=== PATIENT | male | born 1950 | race Caucasian/White ===

== ENCOUNTER 2024-12-31 21:11 | Inpatient (IN) | payer OTHER ==
[~2024-12-31] VITALS: Ht 162.6 cm; Wt 72.6 kg
[2024-12-31 21:53] LABS: PLATELET COUNT (AUTO) 396 K/uL (150-450); RED BLOOD CELL COUNT(AUTO) 4.09 MIL/uL (4.5-6.0); RED CELL DISTRIBUTION WIDTH 16.1 % (11.5-15.0); WHITE BLOOD COUNT (AUTO) 11.2 K/uL (4.3-11.0)
[2024-12-31 22:03] LABS: CALCIUM, SERUM 8.7 mg/dL (8.5-10.1); CREATININE 3.1 mg/dL (0.6-1.3); SODIUM SERUM 135 mmol/L (136-145); UREA NITROGEN, BLOOD 35 mg/dL (7-18)
[2024-12-31 22:09] LABS: ASPARTATE AMINOTRANSFERASE 67 U/L (15-37); TOTAL PROTEIN, SERUM 6.8 g/dL (6.4-8.2)
[2024-12-31] MEDS ORDERED: ONDANSETRON HCL/PF 4 MG/2 ML VIAL ONE (22:35)
[2024-12-31] MEDS: IV NS 0.9% 1,000 ML IV ONE ×2 (22:36→23:09)
[2024-12-31] MEDS: ONDANSETRON HCL/PF - ER 4 MG/2 ML VIAL IV ONE (22:41)
[2024-12-31 22:46] LABS: LACTIC ACID 3.3 mmol/L (0.4-2.0)
[2024-12-31 22:49] LABS: NT-PRO BNP 1153 pg/mL (0-125)
[2024-12-31] MEDS ORDERED: PIPERACI/TAZO 3.375GM/D5W 50ML PB IV ONE (22:59)
[2024-12-31] MEDS: PIPERACILLIN /TAZOBACTAM 3.375 G in IV D5W 50 ML IV ONE (23:06)
[2025-01-01] MEDS ORDERED: POTASSIUM CL. PREMIX PERIPHER. 50 ML ONE (00:05)
[2025-01-01] MEDS: POTASSIUM CL. PREMIX PERIPHER. 50 ML IV SCH (00:13)
[2025-01-01] MEDS ORDERED: ONDANSETRON HCL/PF 4 MG/2 ML VIAL ONE (00:38)
[2025-01-01] MEDS ORDERED: HYDROMORPHONE 1 MG/1 ML DISP.SYRIN ONE (00:39)
[2025-01-01] MEDS: HYDROMORPHONE 1 MG/1 ML DISP.SYRIN IV ONE (00:44)
[2025-01-01] MEDS: ONDANSETRON HCL/PF - ER 4 MG/2 ML VIAL IV ONE (00:45)
[2025-01-01 01:45] LABS: APPEARANCE,URINE CLEAR (CLEAR); BLOOD, URINE TRACE-INTA Ery/uL (NEGATIVE); LEUKOCYTE ESTERASE ,URINE 3+ (NEGATIVE); NITRITE, URINE NEGATIVE (NEGATIVE); UGLUCOSE NEGATIVE (NEGATIVE)
[2025-01-01 02:10] LABS: ADD URINE CULTURE YES; SQUAMOUS EPITHELIAL CELL,UR 0-2 /HPF (None Seen)
[2025-01-01] MEDS ORDERED: FENTANYL PF 100MCG/2ML AMPUL IV PRN (03:00)
[2025-01-01] MEDS ORDERED: HYDROMORPHONE 1 MG/1 ML DISP.SYRIN IV PRN (03:00)
[2025-01-01] MEDS ORDERED: Z GUARD REMEDY 4 OZ OINT TP PRN (03:00)
[2025-01-01] MEDS: PIPERCILLIN/TAZOBACTAM 2.25GM/D5W 50MLPB IV ONE (04:30)
[2025-01-01] MEDS: PIPERACILLIN /TAZOBACTAM 2.25 G in IV D5W 50 ML IV ONE (04:47)
[2025-01-01 06:01] LABS: PLATELET COUNT (AUTO) 282 K/uL (150-450); RED BLOOD CELL COUNT(AUTO) 3.73 MIL/uL (4.5-6.0); RED CELL DISTRIBUTION WIDTH 16.3 % (11.5-15.0); WHITE BLOOD COUNT (AUTO) 8.9 K/uL (4.3-11.0)
[2025-01-01 06:11] LABS: CALCIUM, SERUM 8.0 mg/dL (8.5-10.1); CREATININE 2.7 mg/dL (0.6-1.3); INR 1.35 (0.91-1.10); PHOSPHORUS 4.1 mg/dL (2.5-4.9); SERUM AMMONIA 26.0 umol/L (11-32); SODIUM SERUM 138.0 mmol/L (136-145); UREA NITROGEN, BLOOD 35.0 mg/dL (7-18)
[2025-01-01 07:30] VITALS: BP 139/74; TEMP 97.5; O2SAT 97
[2025-01-01] MEDS: SPIRONOLACTONE 25 MG TABLET PO SCH (08:25)
[2025-01-01] MEDS: FUROSEMIDE 40 MG TABLET PO SCH (08:26)
[2025-01-01] MEDS: PIPERACILLIN /TAZOBACTAM 2.25 G in IV D5W 50 ML IV SCH (12:06)
[2025-01-01] MEDS: POTASSIUM CHLORIDE 20 MEQ TAB.PRT.SR PO ONE (15:05)
[2025-01-01] MEDS: ALBUMIN 25% 25 GM in PREMIX 1 EA IV SCH (15:53)
[2025-01-01 16:15] VITALS: BP 125/70; TEMP 97.7; O2SAT 98
[2025-01-01 20:00] VITALS: BP 135/71; TEMP 98.4; O2SAT 99
[2025-01-02 05:58] LABS: PLATELET COUNT (AUTO) 213 K/uL (150-450); RED BLOOD CELL COUNT(AUTO) 3.07 MIL/uL (4.5-6.0); RED CELL DISTRIBUTION WIDTH 15.6 % (11.5-15.0); WHITE BLOOD COUNT (AUTO) 5.6 K/uL (4.3-11.0)
[2025-01-02 06:03] LABS: ASPARTATE AMINOTRANSFERASE 40.0 U/L (15-37); CALCIUM, SERUM 8.3 mg/dL (8.5-10.1); CREATININE 2.8 mg/dL (0.6-1.3); PHOSPHORUS 3.5 mg/dL (2.5-4.9); SODIUM SERUM 143.0 mmol/L (136-145); TOTAL PROTEIN, SERUM 5.8 g/dL (6.4-8.2); UREA NITROGEN, BLOOD 34.0 mg/dL (7-18)
[2025-01-02 06:04] LABS: CREATINE KINASE, TOTAL 32.0 U/L (39-308)
[2025-01-02 06:11] LABS: HEPATITIS A AB, IgM Negative (Negative); HEPATITIS A AB, TOTAL Positive (Negative); HEPATITIS B CORE AB, IgM Negative (Negative); HEPATITIS B CORE AB, TOTAL Positive (Negative); HEPATITIS B SURFACE AB (QUAL) Reactive (.)
[2025-01-02 07:30] VITALS: BP 128/74; TEMP 97.9; O2SAT 96
[2025-01-02] MEDS: VITAMINS A AND D 56.7 GM TUBE TP PRN (08:23)
[2025-01-02] MEDS: POTASSIUM CHLORIDE 20 MEQ TAB.PRT.SR PO ONE (13:07)
[2025-01-02] MEDS: ALBUMIN 25% 25 GM in PREMIX 1 EA IV SCH (14:02)
[2025-01-02 16:00] VITALS: BP 127/62; TEMP 98.1; O2SAT 97
[2025-01-02] MEDS: ONDANSETRON HCL/PF 4 MG/2 ML VIAL IVP PRN (18:53)
[2025-01-02 20:14] VITALS: BP 130/61; TEMP 98.4; O2SAT 98
[2025-01-02] MEDS: TAMSULOSIN 0.4 MG CAP.SR.24H PO SCH (22:07)
[2025-01-03] VITALS (7 sets, daily range): BP systolic 109–121; BP diastolic 55–67; TEMP 96.4–99.3; O2SAT 95–98
[2025-01-03 06:23] LABS: PLATELET COUNT (AUTO) 194 K/uL (150-450); RED BLOOD CELL COUNT(AUTO) 3.02 MIL/uL (4.5-6.0); RED CELL DISTRIBUTION WIDTH 16.3 % (11.5-15.0); WHITE BLOOD COUNT (AUTO) 5.6 K/uL (4.3-11.0)
[2025-01-03 06:38] LABS: ASPARTATE AMINOTRANSFERASE 39.0 U/L (15-37); CALCIUM, SERUM 8.3 mg/dL (8.5-10.1); CREATININE 2.5 mg/dL (0.6-1.3); PHOSPHORUS 2.7 mg/dL (2.5-4.9); SODIUM SERUM 143.0 mmol/L (136-145); TOTAL PROTEIN, SERUM 5.7 g/dL (6.4-8.2); UREA NITROGEN, BLOOD 33.0 mg/dL (7-18)
[2025-01-03 09:11] LABS: PTH, INTACT 47 pg/mL (15-65)
[2025-01-03 13:40] LABS: CREATININE, URINE 82.1 MG/DL (30.0-125.0); URINE SODIUM, RANDOM 45.0 mmol/l (40-220); URINE TOTAL PROTEIN 47.5 mg/dL (0-11.9)
[2025-01-03 15:41] LABS: INR 1.53 (0.91-1.10)
[2025-01-03 15:53] LABS: FIBRINOGEN ACTIVITY 91.0 Mg/dL (213-485)
[2025-01-03 15:57] LABS: IRON, SERUM 51.0 ug/dl (50-175)
[2025-01-03] MEDS: TAMSULOSIN 0.4 MG CAP.SR.24H PO SCH (22:06)
[2025-01-04 00:02] VITALS: BP 121/73; TEMP 98.1
[2025-01-04 00:17] VITALS: BP 130/63; TEMP 98.6
[2025-01-04 06:10] LABS: AFP, TUMOR MARKER <1.8 ng/mL (0.0-8.4); CARBOHYDRATE AG 19-9 31 U/mL (0-35); CARCINOEMBRYONIC ANTIGEN (CEA) 62.0 ng/mL (0.0-4.7)
[2025-01-04 06:31] LABS: PLATELET COUNT (AUTO) 171 K/uL (150-450); RED BLOOD CELL COUNT(AUTO) 3.28 MIL/uL (4.5-6.0); RED CELL DISTRIBUTION WIDTH 16.8 % (11.5-15.0); WHITE BLOOD COUNT (AUTO) 6.2 K/uL (4.3-11.0)
[2025-01-04 06:47] LABS: ASPARTATE AMINOTRANSFERASE 46.0 U/L (15-37); CALCIUM, SERUM 8.0 mg/dL (8.5-10.1); CREATININE 2.2 mg/dL (0.6-1.3); PHOSPHORUS 3.1 mg/dL (2.5-4.9); SODIUM SERUM 141.0 mmol/L (136-145); TOTAL PROTEIN, SERUM 5.5 g/dL (6.4-8.2); UREA NITROGEN, BLOOD 36.0 mg/dL (7-18)
[2025-01-04 07:00] VITALS: BP 132/73; TEMP 97.5; O2SAT 98
[2025-01-04 08:07] LABS: FOLIC ACID > 20.0 ng/mL (>3.0); FREE KAPPA LT CHAINS SERUM 86.3 mg/L (3.3-19.4); FREE LAMBDA LT CHAIN SERUM 59.4 mg/L (5.7-26.3); IMMUNOGLOBULIN A, SERUM 141 mg/dL (61-437); IMMUNOGLOBULIN M, SERUM 105 mg/dL (15-143); KAPPA/LAMBDA RATIO SERUM 1.45 (0.26-1.65)
[2025-01-04 08:14] LABS: OCCULT BLOOD STOOL NEGATIVE (NEGATIVE)
[2025-01-04 13:24] LABS: FIBRINOGEN ACTIVITY 181.0 Mg/dL (213-485); INR 1.39 (0.91-1.10)
[2025-01-04 16:00] VITALS: BP 123/68; TEMP 97.5; O2SAT 99
[2025-01-04 20:00] VITALS: BP 114/61; TEMP 97.9; O2SAT 98
[2025-01-05 07:29] LABS: FIBRINOGEN ACTIVITY 171.0 Mg/dL (213-485); INR 1.42 (0.91-1.10)
[2025-01-05 07:42] LABS: PLATELET COUNT (AUTO) 185 K/uL (150-450); RED BLOOD CELL COUNT(AUTO) 3.42 MIL/uL (4.5-6.0); RED CELL DISTRIBUTION WIDTH 16.8 % (11.5-15.0); WHITE BLOOD COUNT (AUTO) 7.2 K/uL (4.3-11.0)
[2025-01-05 08:00] VITALS: BP 116/64; TEMP 98.8; O2SAT 99
[2025-01-05 08:01] LABS: ASPARTATE AMINOTRANSFERASE 55.0 U/L (15-37); CALCIUM, SERUM 8.3 mg/dL (8.5-10.1); CREATININE 2.2 mg/dL (0.6-1.3); PHOSPHORUS 3.2 mg/dL (2.5-4.9); SODIUM SERUM 139.0 mmol/L (136-145); TOTAL PROTEIN, SERUM 5.4 g/dL (6.4-8.2); UREA NITROGEN, BLOOD 41.0 mg/dL (7-18)
[2025-01-05] MEDS ORDERED: NITR100C6 PO (13:05)
[2025-01-05 16:00] VITALS: BP 125/61; TEMP 99; O2SAT 97
== END 2025-01-05 17:30 | disposition home or self-care (01) ==
LOC: ER 21:15 → MED 01-01 02:43
PROVIDERS: ATTEND Nurse Practitioner Family
PROC: 0W9G3ZZ Drainage of Peritoneal Cavity, Percutaneous Approach (ICD-10-PCS; principal; 2025-01-02)
PROC: 30233M1 Transfusion of Nonautologous Plasma Cryoprecipitate into Peripheral Vein, Percutaneous Approach (ICD-10-PCS; 2025-01-03)
DX: K74.60 Unspecified cirrhosis of liver (principal); E87.20 Acidosis, unspecified; K72.10 Chronic hepatic failure without coma; K80.21 Calculus of gallbladder without cholecystitis with obstruction; N13.6 Pyonephrosis; N13.8 Other obstructive and reflux uropathy; N17.9 Acute kidney failure, unspecified; E87.6 Hypokalemia; R18.8 Other ascites; E80.6 Other disorders of bilirubin metabolism; R74.01 Elevation of levels of liver transaminase levels; I12.9 Hypertensive chronic kidney disease with stage 1 through stage 4 chronic kidney disease, or unspecified chronic kidney disease; N18.9 Chronic kidney disease, unspecified; N40.1 Benign prostatic hyperplasia with lower urinary tract symptoms; D64.9 Anemia, unspecified; Z68.27 Body mass index [BMI] 27.0-27.9, adult; S81.812A Laceration without foreign body, left lower leg, initial encounter; X58.XXXA Exposure to other specified factors, initial encounter; Y92.9 Unspecified place or not applicable; E66.9 Obesity, unspecified; K76.6 Portal hypertension; K86.9 Disease of pancreas, unspecified; R74.8 Abnormal levels of other serum enzymes
CPT/HCPCS: 36415; 49083; 71045-TC; 71250-TC; 74181-TC; 76705-TC; 76770-TC; 80048-TC; 80053-TC; 80076-TC; 81001; 82105; 82140-TC; 82272-TC; 82378; 82550-TC; 82570-TC; 82607-TC; 82728-TC; 82784; 83540-TC; 83605-TC; 83615-TC; 83690-TC; 83735-TC; 83880; 83970; 84100-TC; 84155; 84165; 84300-TC; 84443-TC; 84484-TC; 85025-TC; 85396; 85610-TC; 86301; 86334; 86704; 86705; 86706; 86707; 86709; 86709-TC; 86803; 86850-TC; 87040-TC; 87070-TC; 87075-TC; 87086-TC; 87186-TC; 87340; 87350; 97110-TC; 97116-TC; 97530-TC; 97535-TC; A4216; A4223; A6403; G0378; J1171; J2405; J2543; J3480; J7030; J7040; J7050; J7060; P9012; P9047